=== PATIENT | female | born 1945 | race Caucasian/White ===

== ENCOUNTER 2016-08-12 10:22 | Emergency (ER) | payer MEDICARE, BC ==
[~2016-08-12 10:22] MED LIST: ABILIFY15 MG PO; ABILIFY20 MG; ABILIFY30 MG; ABILIFY30 MG PO; ADULT ASPIRIN81 MG; ADVAIR 2501 DISK W/D; ASPIR 8181 MG; ASPIR-LOW81 M1 PO; ASPIR-LOW81 MG PO; ASPIRIN EC81 MG PO; ASTELIN137 MCG; ASTEPRO30 M1 NS; ATIVAN0.5 MG; ATIVAN0.5 MG PO; BACTRIM DS1 TAB PO; BENZONATATE200 MG; BENZONATATE200 MG PO; CENTRUM MULTIV1 EACH PO; CENTRUM TABLET1 TAB PO; CHLORHEXIDINE; CLEOCIN HCL300 MG PO; CLINDAMYCIN HC300 MG PO; CLONAZEPAM0.5 MG PO; CLOPIDOGREL75 M1 PO; CULTURELLE1 CA1 PO; ESCITALOPRAM OX20 M1 PO; FERROUS SULFAT325 MG PO; FLUTICASONE PRO16 GM; H PO; HYDROCHLOROTHIA25 MG PO; HYDROCODONE/APA1 TAB; IMIPRAMINE HCL PO; IMIPRAMINE PAMO75 MG PO; IPRATR-ALBUTEROL3 ML IH; IRON325 ( 65 ) PO; KEFLEX500 M4 PO; KLOR-CON 1010 ME1 PO; KLOR-CON 1010 MEQ PO; LAMICTAL200 M1 PO; LAMICTAL200 MG; LAMICTAL200 MG PO; LAMICTAL25 M PO; LAMOTRIGINE200 M2 PO; LEVAQUIN500 MG PO; LEVAQUIN750 MG PO; LEVOTHROID112 MCG PO; LEVOTHROID150 MC1 PO; LEXAPRO20 MG; LEXAPRO20 MG PO; LIPITOR20 MG; LIPITOR20 MG PO; LOPRESSOR50 MG; LORAZEPAM0.5 MG; LORAZEPAM2 MG; LOVAZA1 GM PO; LOVAZA1 GM/CAP PO; LUNESTA3 MG; MACROBID100 MG/CA2 PO; MAGNESIUM250 M2 PO; MAGNESIUM250 MG PO; METAPROLOL; METOPROLOL TART25 M1 PO; METOPROLOL TART25 MG; METOPROLOL TART25 MG PO; METROCREAM TP; Magnesium PO; NEXIUM40 MG; NEXIUM40 MG PO; NITROQUICK0.4 MG; NORCO 5/325 TAB1 TAB PO; OMNARIS12.5 GM; OMNARIS12.5 GM NS; OXYGEN; PEPCID PO; PEPCID20 MG PO; PERCOCET 5/3251 TAB PO; PERFOROMIS20 MCG/2 M; PERFOROMIS20 MCG/2 M IH; PERIDEX480 ML; PHENERGAN W/CO120 M1 PO; PLAVIX75 M1 PO; PLAVIX75 MG PO; PRALUENT P75 MG/1 ML IM; PRAVACHOL20 MG PO; PREDNISONE; PROAIR; PROCHLORPERAZIN10 MG; PROTONIX40 M2 PO; PROTONIX40 MG PO; SEROQUEL XR300 MG PO; SPIRIVA RESPIMAT4 GM INH; SYMBICORT 160-1 PUFF INH; SYMBICORT 160-4.6 GM INH; SYMBICORT 16010.2 GM; SYNTHROID125 MCG; SYNTHROID137 MC1 PO; SYNTHROID200 MCG PO; TOFRANIL-PM75 MG; TOFRANIL50 MG; TUSSIN CF SYRU118 ML PO; TUSSIONEX PO; TYLENOL EXTRA500 MG PO; TYLENOL325 MG PO; TYLENOL500 MG PO; VERAMYST10 GM; VERAMYST10 GM NS; VICODIN 5/500 T1 TAB PO; VITAMIN D 22000 UNIT; VITAMIN D3 1,01 EACH PO; VITAMIN D31000 UNIT PO; VITAMIN D32000 UNI2 PO; XOPENEX HFA15 G1 INH; XOPENEX HFA15 GM IH; [UNRECOGNIZED DRUG - OTHER]; [UNRECOGNIZED DRUG - OTHER] TP
[2016-08-12] MEDS ORDERED: NYSTATIN100000 UNI SSP (10:52)
[2016-08-12] MEDS ORDERED: CLEOCIN HCL300 M1 PO (11:04)
[2016-08-12] MEDS ORDERED: CLARITIN10 M6 PO (11:06)
[2016-08-12] MEDS ORDERED: NORCO 5-325 TA1 EACH PO (12:23)
[2016-09-08] MEDS ORDERED: LASIX20 M1 PO (11:26)
== END 2016-08-12 12:35 ==
LOC: EDMED 10:22
DX: S42.012A Anterior displaced fracture of sternal end of left clavicle, initial encounter for closed fracture (principal); I25.10 Atherosclerotic heart disease of native coronary artery without angina pectoris; J44.9 Chronic obstructive pulmonary disease, unspecified; J45.909 Unspecified asthma, uncomplicated; Z95.1 Presence of aortocoronary bypass graft; Z85.118 Personal history of other malignant neoplasm of bronchus and lung; Z87.891 Personal history of nicotine dependence; Z99.81 Dependence on supplemental oxygen; Z79.899 Other long term (current) drug therapy; Z79.82 Long term (current) use of aspirin; Z79.890 Hormone replacement therapy; W19.XXXA Unspecified fall, initial encounter

== ENCOUNTER 2016-09-14 05:09 | Emergency (ER) | payer MEDICARE, BC ==
[~2016-09-14 05:09] MED LIST changes: +CLARITIN10 M6 PO; +CLEOCIN HCL300 M1 PO; +LASIX20 M1 PO; +NORCO 5-325 TA1 EACH PO; +NYSTATIN100000 UNI SSP
[2016-09-14] MEDS ORDERED: TESSALON PERLE100 M1 PO (06:51)
[2016-09-14] MEDS ORDERED: LOVAZA1 GM/CAP PO (06:51)
[2016-09-14] MEDS ORDERED: [UNRECOGNIZED DRUG - OTHER] (06:52)
[2016-09-14] MEDS ORDERED: [UNRECOGNIZED DRUG - OTHER] (06:52)
[2016-09-14] MEDS ORDERED: [UNRECOGNIZED DRUG - OTHER] (06:52)
== END 2016-09-14 07:32 ==
LOC: EDMED 05:09
DX: S51.811A Laceration without foreign body of right forearm, initial encounter (principal); I10 Essential (primary) hypertension; I25.10 Atherosclerotic heart disease of native coronary artery without angina pectoris; J44.9 Chronic obstructive pulmonary disease, unspecified; J45.909 Unspecified asthma, uncomplicated; Z95.5 Presence of coronary angioplasty implant and graft; Z95.1 Presence of aortocoronary bypass graft; Z85.118 Personal history of other malignant neoplasm of bronchus and lung; Z87.891 Personal history of nicotine dependence; Z79.51 Long term (current) use of inhaled steroids; Z79.82 Long term (current) use of aspirin; Z79.899 Other long term (current) drug therapy; W01.0XXA Fall on same level from slipping, tripping and stumbling without subsequent striking against object, initial encounter; Y92.019 Unspecified place in single-family (private) house as the place of occurrence of the external cause

== ENCOUNTER 2016-10-04 06:30 | Emergency (ER) | payer MEDICARE, BC ==
[~2016-10-04 06:30] MED LIST changes: +TESSALON PERLE100 M1 PO; +[UNRECOGNIZED DRUG - OTHER]; +[UNRECOGNIZED DRUG - OTHER]; +[UNRECOGNIZED DRUG - OTHER]
== END 2016-10-04 08:28 ==
LOC: EDMED 06:30
PROC: 0HQ0XZZ Repair Scalp Skin, External Approach (ICD-10-PCS; principal; 2016-10-04)
DX: S01.01XA Laceration without foreign body of scalp, initial encounter (principal); J44.9 Chronic obstructive pulmonary disease, unspecified; I25.10 Atherosclerotic heart disease of native coronary artery without angina pectoris; Z87.891 Personal history of nicotine dependence; Z79.899 Other long term (current) drug therapy; Z79.82 Long term (current) use of aspirin; Z79.890 Hormone replacement therapy; W18.00XA Striking against unspecified object with subsequent fall, initial encounter; Y92.019 Unspecified place in single-family (private) house as the place of occurrence of the external cause

== ENCOUNTER 2016-10-18 19:17 | Emergency (ER) | payer MEDICARE, BC | END 2016-10-18 20:35 | disposition T | LOC: EDMED 19:17 | DX: S09.90XA Unspecified injury of head, initial encounter (principal); J44.9 Chronic obstructive pulmonary disease, unspecified; I73.9 Peripheral vascular disease, unspecified; Z95.2 Presence of prosthetic heart valve; Z79.82 Long term (current) use of aspirin; Z85.118 Personal history of other malignant neoplasm of bronchus and lung; Z88.8 Allergy status to other drugs, medicaments and biological substances; Z87.891 Personal history of nicotine dependence ==